=== PATIENT | female | born 1955 | race Caucasian/White ===

== ENCOUNTER → 2016-08-15 | Outpatient (CLI) | payer OTHER ==
[~2016-08-15] MED LIST: ASCO500T2 PO; CA C1TAB35 PO; DOCU100C5 PO; ESOM20CA PO; METH-39 PO; MULT-208 PO; OMEG1CAP43 PO; OXYB5TAB7 PO
--- NOTE | 2016-08-15 20:30 | PAIN ---
DATE OF SERVICE: 08/15/2016 DIAGNOSES: Cervical radiculopathy with cervical spinal stenosis and cervical degenerative disk disease. HISTORY OF PRESENT ILLNESS: The is a 61-year-old female, who returns for followup status post cervical epidural steroid injection x 1. The patient reports approximately 100% improvement in the neck and right upper extremity. The patient reports doing very well, is very pleased with the progress. The pain is only a twinge just now and then when she is doing some activity with her right arm such as driving or holding a phone for prolonged period. Otherwise, the patient reports she is doing well. She is sleeping well at night, increased her activity with greater ease and comfort. No new motor or sensory deficits, no new complaints. The patient rates the pain as 0 on a scale 10 today, has been doing quite well. The patient's old chart was reviewed, as was her current medication regimen updated. Current review of systems updated today as well. PHYSICAL EXAMINATION: VITAL SIGNS: Today, the patient's blood pressure is 159/97, pulse 99, respirations 18, temperature 99.1 degrees Fahrenheit, height is 5 feet 4 inches, weight is 181 pounds. GENERAL: The patient is awake, alert, oriented, appropriate, very pleasant demeanor. HEENT: Head shows normocephalic, atraumatic. Extraocular movements are intact and symmetrical. Oral cavity shows mucous membranes moist and pink. Dentition intact. NECK: Shows anterior throat supple without palpable lymphadenopathy noted. Swallow reflex is symmetrical. CHEST: Shows normal on inspection. Breath sounds clear to auscultation bilaterally. HEART: Shows S1 and S2 clear. ABDOMEN: Soft, nontender, nondistended. No palpable organomegaly. No rebound or guarding demonstrated. BACK: Shows spine grossly midline. Cervical paraspinous muscle shows some very mild tenderness, but only with deep palpation in the inferior aspect of the right paraspinous musculature in the cervical distribution, as well as superior, medial, and lateral trapezius, but without radiation, without asymmetry. The patient shows good rotational motion of cervical spine, both laterally greater than 45 degrees, right and left full extension, full forward flexion without significant pain reported. Upper extremity showed deep tendon reflexes at 2+ in the biceps and triceps tendons. 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 Options were discussed with the patient. The patient's old chart was reviewed as her current medication regimen updated. Current review of systems updated today as well. We will hold on any further injections at this time as the patient is doing quite well, instruct her to maintain physical therapy type exercises with stretching and strengthening of the neck and upper extremities and shoulders, arms. Also discussed her blood pressure, which is slightly elevated today. She reports that she has this on occasion and is encouraged to discuss this with her primary care physician, which she acknowledges. Also we had medication, meloxicam, which the pharmacy would not fill as she had a swelling reaction with some ibuprofen about 10 years ago. We will try different pharmacy to see if she may get some of this filled so she could try this. Obviously, if any allergic reactions and side effects occurred, she would stop it immediately. The patient understands this as well and we discussed this in some detail today. DAVID LOCKWOOD MD DR: SAMARA/mary JOB#: [id number] / [id number]
== END | disposition home or self-care (01) ==
LOC: PNCL 08:03
PROVIDERS: ATTEND Anesthesiology
DX: M50.10 Cervical disc disorder with radiculopathy, unspecified cervical region (principal); M48.02 Spinal stenosis, cervical region
CPT/HCPCS: 99212

== ENCOUNTER → 2017-05-01 | Outpatient (CLI) | payer OTHER ==
[~2017-05-01] MED LIST changes: +DOCU100C28 PO; -DOCU100C5 PO; +IOHEXOL 180 MG/ML 10 ML VIAL. ONE; +methylPREDNISolone ACETATE 40 MG/ML VIAL. ONE; +methylPREDNISolone ACETATE 80 MG/ML VIAL. ONE
--- NOTE | 2017-05-02 02:26 | PAIN ---
DATE OF SERVICE: 05/01/2017 DIAGNOSES: Cervical radiculopathy with cervical spinal stenosis and cervical degenerative disk disease. HISTORY OF PRESENT ILLNESS: The patient is a 62-year-old female who returns for followup status post cervical epidural steroid injection x 1 in July 2016. The patient did quite well with this with near 100% improvement. The pain has only been returning over the past 2-3 weeks ago. The patient reports increasing the base of the neck and bilateral shoulders and upper extremities, somewhat worse on the right than the left but present bilaterally. The patient reports no loss of motor function, but her pain is an 8 on a scale of 10 at its worst and about a 7 otherwise. The patient reports it is aching, shooting, cramping, stabbing, becoming more constant and without any specific new injury or accident that she is aware of. The patient reports this is awakening her from sleep. She sleeps about 5 hours at a time, and she has to reposition, get out of bed and take pain medication, and she is usually able to get back to sleep. The patient reports no new motor or sensory deficits or other complaints. PHYSICAL EXAMINATION: VITAL SIGNS: The patient's blood pressure 147/90, pulse 79, respirations 18, temperature is 98.2 degrees Fahrenheit, height is 5 feet 5 inches, weight is 187 pounds. GENERAL: The patient is awake, alert, oriented, appropriate, very pleasant demeanor. HEENT -- head shows normocephalic and atraumatic. Extraocular movements are intact and symmetrical. Oral cavity: Mucous membranes are moist and pink. Dentition is intact. NECK: Shows anterior throat supple without palpable lymphadenopathy noted. Swallow reflex is symmetrical. CHEST: Shows normal with inspection. Breath sounds clear to auscultation bilaterally. HEART: Shows S1 and S2 clear. No murmurs are auscultated. ABDOMEN: Soft, nontender, nondistended. No palpable organomegaly is noted. MUSCULOSKELETAL: Back shows spine grossly in midline, normal-appearing cervical lordotic curvature, thoracic kyphotic curvature and lumbar lordotic curvature. No previous bruises, lesions, rashes or scars are noted. Cervical distribution shows paraspinous musculature is symmetrical on inspection and with palpation shows moderate tenderness throughout the middle and lower distribution of paraspinous muscles in the cervical distribution bilaterally. Also, in the superior, medial and lateral trapezius somewhat more tender on the right than the left but present with tenderness bilaterally with palpation. The patient shows good rotational motion of cervical spine, both laterally, greater than 45 degrees right and left as well as full extension with some minor tenderness in the base of the neck reported but decreased and actually relieved pain with forward flexion, which he performs fully. Upper extremities show deep tendon reflexes 2+ in the biceps and triceps tendons. Motor exam is strong with powder expert strength rated 5/5 and equal bilaterally with the biceps and triceps flexion approximately 4 on a scale of 5 on the right biceps but 5/5 on the left. Peripheral pulses are 2+ in radial distribution. No peripheral edema is noted. No clubbing. No cyanosis. Shoulder shrug is strong and intact without loss of strength on resistance. PLAN: Options were discussed with the patient. The patient's old chart was reviewed as her current medication regimen updated. Current review of systems updated today as well, and we will proceed with a cervical epidural steroid injection today with fluoroscopic guidance. Risks were again discussed including but not limited to bleeding, infection, possibility of epidural hematoma and subsequent neurological compromise, dural puncture headaches, spinal cord and/or nerve damage, side effects of steroid medication and poor results regarding pain control. The patient understands and wishes to proceed. The patient will return to the clinic in approximately 2 weeks for followup. She was counseled as to return appointment, activity level and side effects to be aware of. DIAGNOSIS: Cervical radiculopathy, cervical spinal stenosis and cervical degenerative disk disease. PROCEDURE: Cervical epidural steroid injection in translaminar approach at C6-C7 level using C-arm fluoroscopic guidance under sterile prep and drape using local anesthetic. MEDICATION INJECTED: A total of 120 mg Depo-Medrol plus 5 mL preservative-free normal saline and 2 mL of Isovue for contrast. CONDITION AT DISCHARGE: Stable. The patient tolerated the procedure well and had no complications. DAVID LOCKWOOD MD DR: SAMARA/mary JOB#: [id number] / [id number]
== END | disposition home or self-care (01) ==
LOC: PNCL 08:22
PROVIDERS: ATTEND Anesthesiology
DX: M50.123 Cervical disc disorder at C6-C7 level with radiculopathy (principal); M48.02 Spinal stenosis, cervical region; Z88.6 Allergy status to analgesic agent
CPT/HCPCS: 62321; J1030; J1040

== ENCOUNTER → 2019-01-27 | Outpatient (CLI) | payer OTHER ==
[~2019-01-27] MED LIST changes: -IOHEXOL 180 MG/ML 10 ML VIAL. ONE; -methylPREDNISolone ACETATE 40 MG/ML VIAL. ONE; -methylPREDNISolone ACETATE 80 MG/ML VIAL. ONE
--- NOTE | 2019-01-27 12:12 | KCIC ---
MRI of the cervical spine without contrast 01/27/2019 CLINICAL HISTORY: Neck pain which radiates down both arms. TECHNIQUE: Unenhanced T1-weighted, T2-weighted and inversion recovery sagittal and gradient echo and T2-weighted axial images of the cervical spine were obtained. FINDINGS: Comparison study is dated 07/09/2016. Minimal lateral curvature of the cervical spine is seen convex to the left. There is reversal of the normal cervical lordosis. Degenerative signal changes are seen involving all of the disks of the cervical spine. Degenerative signal changes are seen within the marrow surrounding these discs. Loss of height of the C3-4, C4-5, C5-6 and C6-7 discs is noted. No area of abnormal signal intensity is seen involving the cervical spinal cord. At the C2-3 disc space there is a mild generalized disc bulge. Degenerative changes are seen involving the uncovertebral and facet joints bilaterally. These findings do not result in significant central spinal canal or neural foraminal stenosis. At the C3-4 disc space there is a mild to moderate generalized disc bulge. Degenerative changes are seen involving the uncovertebral and facet joints bilaterally. These findings efface the anterior CSF without resulting in significant central spinal canal stenosis. Mild bilateral neural foraminal stenosis is seen. At the C4-5 disc space there is a mild generalized disc bulge. This is eccentric to the left. Degenerative changes are seen involving the uncovertebral and facet joints, left greater than right. These findings do not result in significant central spinal canal stenosis. Mild left neural foraminal stenosis is seen. The right neural foramen is patent. At the C5-6 disc space there is a mild generalized disc bulge. Degenerative changes are seen involving the uncovertebral and facet joints bilaterally. These findings efface the anterior and posterior CSF resulting in mild central spinal canal stenosis without evidence of cord impingement. Mild to moderate bilateral neural foraminal stenosis is seen. At the C6-7 disc space there is a mild generalized disc bulge. Degenerative changes are seen involving the uncovertebral and facet joints bilaterally. These findings do not result in significant central spinal canal or neural foraminal stenosis. At the C7-T1 disc space there is a minimal generalized disc bulge. Degenerative changes are seen involving the facet joints bilaterally. These findings when combined do not result in significant central spinal canal or neural foraminal stenosis. Since the previous examination there has been no significant interval change. IMPRESSION: Degenerative changes are seen throughout the cervical spine. These findings result in mild central spinal canal stenosis without evidence of cord impingement at C5-6. Mild bilateral neural foraminal stenosis is seen at C3-4. Mild left neural foraminal stenosis is seen at C4-5. Mild to moderate bilateral neural foraminal stenosis is seen at C5-6. Electronically signed by: Kunal Mendoza MD (01/27/2019 12:09 PM) [id number]
== END | disposition home or self-care (01) ==
LOC: KCIC MRI 09:18
PROVIDERS: ATTEND Family Medicine
DX: M47.813 Spondylosis without myelopathy or radiculopathy, cervicothoracic region (principal); M47.22 Other spondylosis with radiculopathy, cervical region; M48.02 Spinal stenosis, cervical region
CPT/HCPCS: 72141

== ENCOUNTER → 2019-02-24 | Outpatient (CLI) | payer OTHER ==
[~2019-02-24] MED LIST changes: +GLUC1TAB45 PO; +TIZA4TAB PO; +tumeric/curcumin PO
--- NOTE | 2019-02-24 23:11 | PAIN ---
DATE OF SERVICE: 02/24/2019 PROGRESS NOTE FOR PAIN CLINIC DIAGNOSES: Cervical radiculopathy with cervical spinal stenosis and cervical degenerative disk disease. HISTORY OF PRESENT ILLNESS: The patient is a 63-year-old female who returns for followup, status post cervical epidural steroid injection in 04/2017. The patient did very well and reports near 100% improvement in her cervical radiculopathy pain at that time. The patient reports she did very well until about 6 months ago, the pain began to return without any specific injury or action that she is aware of at the base of the neck and shoulders, radiating to the upper extremities, slightly more on the right than the left, as well as previously into the shoulder, into the upper arm, posterior aspect of the triceps, into the right forearm and hand, with numbness and tingling that is going into the left as well and proximally the forearm on the left side, was radiating, aching, sharp, tight, shooting pain, rated as an 8 on a scale of 10 at its worst, 6 on average, 4 at its least and is an 8 today. The patient reports it is worse with activity, standing, walking, and changing positions, with awakening her from sleep at night at least every 5-6 hours, especially if she lays on her right side. The patient reports headaches from the pain as well and is becoming more and more constant. The patient reports no new motor or sensory deficits, no new changes, but significant radiating pain in a radicular fashion bilaterally in the right greater than left upper extremity. The patient did have a new MRI scan showing disk bulges at C4-C5, C5-C6, C6-C7, and C7-T1 with some moderate neural foraminal stenosis at C5-C6 and C6-C7 levels bilaterally. PHYSICAL EXAMINATION: VITAL SIGNS: The patient's blood pressure 135/53, pulse 62, respirations are 18, temperature 98.6 degrees Fahrenheit. Height is 5 feet 4 inches, weight is 186 pounds. GENERAL: The patient is awake, alert, oriented, appropriate, very pleasant demeanor. The patient is accompanied by her spouse. HEENT: Shows normocephalic, atraumatic. Extraocular movements are intact and symmetrical. Oral cavity: Mucous membranes are moist and pink. Dentition is intact. NECK: Shows anterior throat supple without palpable lymphadenopathy noted. Swallow reflex is symmetrical. CHEST: Shows normal on inspection. Breath sounds are clear to auscultation bilaterally. HEART: Shows S1, S2 clear. No murmurs auscultated. ABDOMEN: Soft, nontender, nondistended. No palpable organomegaly is noted. No rebound or guarding demonstrated. MUSCULOSKELETAL: The patient's neck shows posterior cervical musculature symmetrical with inspection, on palpation shows some moderate tenderness in the inferior aspect of the paraspinous muscles as well as the middle aspect of the paraspinous muscles and into the superior medial trapezius, more on the right than the left, but present bilaterally without specific trigger points, without radiation or asymmetry. The patient has good rotational motion with some minor tenderness with extension, but not with forward flexion, but full rotation right and left lateral greater than 45 degrees, closer to 90 degrees bilaterally. Upper extremities show deep tendon reflexes at 2+ in the biceps, triceps tendons. Motor exam is approximately 5 on a scale of 5 with gold assayer strength on the left and 4/5 on the right, and 4/5 on the right bicep and 5/5 on the left. Peripheral pulses are 2+ radial distribution. No peripheral edema is noted. Shoulder shrug is intact, but with some moderate pain with resistance, more on the right side than the left, in the base of the neck and shoulder, but without loss of strength on resistance. PLAN: Options were discussed with the patient. The patient's old chart was reviewed as was her current medication regimen updated. Current review of systems was updated today as well and we will preauthorize the patient for a cervical epidural steroid injection, as she has done very well with these in the past with 100% improvement, with the last injection in 04/2017 lasting almost a year and a half, the pain now returning without new injury with radiating pain in a radicular fashion, mostly in the C6-C7 level bilaterally, right greater than left. We will preauthorize for a C6-C7 level translaminar epidural steroid injection. The patient will continue with muscle relaxants. She was given a refill prescription for Zanaflex, was counseled on the side effects to be aware of as well and will keep exercising and stretching as she has been doing with the upper extremities and shoulders as well as the neck as tolerated and activity as tolerated also. The patient will return to clinic for cervical epidural steroid injection once approved. DAVID LOCKWOOD MD DR: SAMARA/mary JOB#: [id number] / [id number]
== END | disposition home or self-care (01) ==
LOC: PNCL 13:27
PROVIDERS: ATTEND Anesthesiology
DX: M50.10 Cervical disc disorder with radiculopathy, unspecified cervical region (principal); M48.02 Spinal stenosis, cervical region
CPT/HCPCS: G0463

== ENCOUNTER → 2019-03-07 | Outpatient (CLI) | payer OTHER ==
[~2019-03-07] MED LIST changes: +IOHEXOL 180 MG/ML 10 ML VIAL. ONE; -TIZA4TAB PO; +TIZA4TAB2 PO; +methylPREDNISolone ACETATE 40 MG/ML VIAL. ONE; +methylPREDNISolone ACETATE 80 MG/ML VIAL. ONE
--- NOTE | 2019-03-08 07:24 | PAIN ---
DATE OF SERVICE: 03/07/2019 PROGRESS NOTE FOR PAIN CLINIC DIAGNOSES: Cervical radiculopathy with cervical spinal stenosis and cervical degenerative disk disease. HISTORY OF PRESENT ILLNESS: This is a 63-year-old female who returns for followup status post initial evaluation and preauthorization for cervical epidural steroid injection. The patient reports still significant pain in the base of the neck and bilateral upper extremities, right greater than left, present with radiating pain into the upper extremities, again worse on the right side but present bilaterally. The patient reports her pain is an 8 on a scale of 10 at its worst in the past week, 8 on average, 7 at its least and is an 8 today. The patient reports aching, sharp, tight, shooting, tingling in the arms as it was previously. No significant changes. The patient reports it awakens her from sleep about every 6 hours if she lies on her right side. No significant changes, no new motor loss or other findings. PHYSICAL EXAMINATION: VITAL SIGNS: The patient's blood pressure is 140/95, pulse 85, respirations 18, temperature 98.8 degrees Fahrenheit, height is 5 feet 4 inches and weight is 188 pounds. GENERAL: The patient is awake, alert, oriented, appropriate, very pleasant demeanor. HEENT: Head shows normocephalic, atraumatic. Extraocular movements are intact and symmetrical. Oral cavity: Mucous membranes moist and pink. Dentition is intact. NECK: Shows anterior throat supple without palpable lymphadenopathy noted. Swallow reflex is symmetrical. CHEST: Shows normal on inspection. Breath sounds clear to auscultation bilaterally. HEART: Shows S1, S2 clear. No murmurs auscultated. ABDOMEN: Soft, nontender, nondistended. No palpable organomegaly is noted. No rebound or guarding demonstrated. BACK: Shows spine grossly in the midline, normal-appearing cervical lordotic curvature and thoracic kyphotic curvature. Cervical paraspinous muscle shows symmetrical on inspection, with palpation it shows some mild tenderness in the inferior paraspinous musculature as well as the superior medial trapezius. Again somewhat more tender on the right than the left, but present bilaterally and symmetrical without evidence of atrophy or hypertrophy, no trigger points noted. The patient has good rotational motion involving the cervical spine, both laterally greater than 45 degrees and closer to 90 degrees right and left as well as full extension, full forward flexion without significant increase in pain. EXTREMITIES: Upper extremities showed deep tendon reflexes 2+ in the biceps and triceps tendons. Motor exam is approximately 4 on a scale of 5 with right chief recordist strength and biceps and triceps and 5/5 on the left. Peripheral pulses are 2+ in radial distribution. No peripheral edema is noted bilaterally. Options were discussed with the patient. The patient's old chart was reviewed as her current medication regimen updated. Current review of systems updated today as well. We will proceed with a cervical epidural steroid injection today with fluoroscopic guidance. Risks were again discussed including but not limited to bleeding, infection, possibility of epidural hematoma, subsequent neurological compromise, dural puncture, headaches, spinal cord and/or nerve damage, side effects of steroid medication and poor results regarding pain control. The patient understands and wished to proceed. The patient will return to clinic in approximately 2 weeks for followup. She was counseled on return appointment, activity level and side effects to be aware of. DIAGNOSES: Cervical radiculopathy with cervical spinal stenosis and cervical degenerative disk disease. PROCEDURE: Cervical epidural steroid injection, translaminar approach at C6-C7 level using C-arm fluoroscopic guidance under sterile prep and drape using local anesthetic. MEDICATIONS INJECTED: A total of 120 mg Depo-Medrol plus 5 mL of preservative-free normal saline and 2 mL of contrast. CONDITION AT DISCHARGE: Stable. The patient tolerated the procedure well, had no complications. DAVID LOCKWOOD MD DR: SAMARA/mary JOB#: [id number] / [id number]
== END ==
LOC: PNCL 14:25
PROVIDERS: ATTEND Anesthesiology
DX: M50.123 Cervical disc disorder at C6-C7 level with radiculopathy (principal); M48.061 Spinal stenosis, lumbar region without neurogenic claudication
CPT/HCPCS: 62321; J1030; J1040; Q9965

== ENCOUNTER → 2019-03-28 | Outpatient (CLI) | payer OTHER ==
[~2019-03-28] MED LIST changes: -IOHEXOL 180 MG/ML 10 ML VIAL. ONE; -methylPREDNISolone ACETATE 40 MG/ML VIAL. ONE; -methylPREDNISolone ACETATE 80 MG/ML VIAL. ONE
--- NOTE | 2019-03-28 23:11 | PAIN ---
DATE OF SERVICE: 03/28/2019 PROGRESS NOTE FOR PAIN CLINIC DIAGNOSES: Cervical radiculopathy with cervical spinal stenosis and cervical degenerative disk disease. HISTORY OF PRESENT ILLNESS: The patient is a 63-year-old female who returns for followup status post cervical epidural steroid injection x 1. The patient reports about 60% improvement, but it took a few days to kick in. The patient reports since that time, the pain has been fairly well controlled, still present, but overall doing quite a bit better. The patient reports she is sleeping better at night, has not awakened her from sleep, she sleeps about 8 hours at a time. No new motor or sensory deficits. The patient reports the pain has been returning, however, over the past few days after the first injection, back about 3-1/2 weeks ago. The patient reports the pain now worst is an 8 on a scale of 10, on average is an 8, is a 7 at its least and is a 7 today. The patient reports it is aching, sharp, dull, tight, shooting, tingling, constant in the base of the neck and shoulders, somewhat more on the right greater than left upper extremity with some radicular pain in both the upper extremities and C6-C7 dermatomal distribution as it was previously, again significantly improved but still present and beginning to become more noticeable over the past 3-4 days. The patient reports no new motor or sensory deficits and no new bowel or bladder incontinence or other complaints. PHYSICAL EXAMINATION: VITAL SIGNS: The patient's blood pressure is 174/97, pulse 83, respirations are 18, temperature 98.4 degrees Fahrenheit, height is 5 feet 4 inches and weight is 187 pounds. GENERAL: The patient is awake, alert, oriented, appropriate, very pleasant demeanor. HEENT: Shows normocephalic, atraumatic. Extraocular movements are intact and symmetrical. Oral cavity: Mucous membranes moist and pink. Dentition is intact. NECK: Shows anterior throat supple without palpable lymphadenopathy noted. Swallow reflex symmetrical. CHEST: Shows normal on inspection. Breath sounds clear to auscultation bilaterally. HEART: Shows S1, S2 clear. No murmurs auscultated. ABDOMEN: Soft, nontender and nondistended. No palpable organomegaly is noted. No rebound or guarding demonstrated. BACK: Shows spine grossly in the midline. Normal-appearing thoracic kyphosis and some minor flattening of lumbar lordotic curvature. Cervical lordotic curvature is maintained. Cervical paraspinous muscle shows symmetrical on inspection. On palpation, she has some moderate tenderness diffusely, but only diffusely bilaterally without significant radiation. No specific trigger points. No atrophy or hypertrophy is demonstrated. The patient has good rotational motion of cervical spine, both laterally as well as extension and flexion without significant increase in pain. EXTREMITIES: Upper extremities show deep tendon reflexes 2+ in the biceps and triceps tendons. Motor exam is presently 4 on a scale of 5 on the right, 5/5 on the left with administrative support clerk strength, bicep and tricep flexion and peripheral pulses are 2+ radial distribution. No peripheral edema is noted. Options were discussed with the patient. The patient's old chart was reviewed as her current medication regimen updated. Current review of systems updated today as well. We will preauthorize the patient for a second cervical epidural steroid injection. She did very well after the first injection. Now, the pain is returning over the past few days with radicular quality in the right greater than left upper extremities is present bilaterally at C6-C7 dermatomal distribution. We will preauthorize the patient for C6-C7 level cervical epidural steroid injection. In the meantime, the patient will continue with stretching and strengthening exercises, heat application to the neck and shoulders as well and return once for authorization obtained for cervical epidural steroid injection. DAVID LOCKWOOD MD DR: SAMARA/mary JOB#: [id number] / [id number]
== END | disposition home or self-care (01) ==
LOC: PNCL 14:04
PROVIDERS: ATTEND Anesthesiology
DX: M50.10 Cervical disc disorder with radiculopathy, unspecified cervical region (principal); M48.02 Spinal stenosis, cervical region
CPT/HCPCS: G0463

== ENCOUNTER → 2019-04-12 | Outpatient (CLI) | payer OTHER ==
[~2019-04-12] MED LIST changes: +IOHEXOL 180 MG/ML 10 ML VIAL. ONE; +methylPREDNISolone ACETATE 40 MG/ML VIAL. ONE; +methylPREDNISolone ACETATE 80 MG/ML VIAL. ONE
--- NOTE | 2019-04-13 00:46 | PAIN ---
DATE OF SERVICE: 04/12/2019 PROGRESS NOTE FOR PAIN CLINIC DIAGNOSES: Cervical radiculopathy with cervical spinal stenosis and cervical degenerative disk disease. HISTORY OF PRESENT ILLNESS: This is a 63-year-old female who returns for followup status post cervical epidural steroid injection x 1 with about 100% improvement for the first several weeks. The patient reports the pain returned with pain in the base of the neck and shoulders and now on the left greater than the right. The patient reports her pain over the past week has been a 9 on a scale of 10 at its worst, 8 on average, 8 at its least and is an 8 today. The patient reports tingling, cramping, burning, aching, sharp, dull, becoming more constant at base and neck and into the shoulders and arms, mostly on the left side. The patient reports some fatigability to the left arm, but no actual motor loss. The patient reports no new motor or sensory deficits. It is awakening her from sleep at night occasionally when she lays on her left side. PHYSICAL EXAMINATION: VITAL SIGNS: The patient's blood pressure 138/92, pulse 91, respirations 18, temperature 98.1 degrees Fahrenheit, height is 5 feet 4 inches, weight is 185 pounds. GENERAL: The patient is awake, alert, oriented, appropriate, very pleasant demeanor. HEENT: Shows normocephalic, atraumatic. Extraocular movements are intact and symmetrical. Oral cavity, mucous membranes are moist and pink. Dentition is intact. NECK: Shows anterior throat supple without palpable lymphadenopathy noted. Swallow reflex is symmetrical. CHEST: Shows normal on inspection. Breath sounds are clear to auscultation bilaterally. HEART: Shows S1, S2 clear. No murmurs auscultated. ABDOMEN: Soft, nontender, nondistended. No palpable organomegaly is noted. No rebound or guarding demonstrated. BACK: Shows spine grossly in the midline. Normal appearing thoracic kyphosis and some minor flattening of lumbar lordotic curvature. Lumbar paraspinous muscle shows symmetrical on inspection, on palpation shows some moderate tenderness diffusely bilaterally going diffusely without radiation. NECK: Shows anterior throat supple. Posterior cervical musculature shows symmetrical on inspection, with palpation shows some moderate tenderness in the inferior cervical paraspinous muscles as well as the superior medial trapezius bilaterally. The patient has good rotational motion however in the cervical spine, both laterally as well as extension and flexion without significant difficulty. No pain reported. MUSCULOSKELETAL: The patient's upper extremities show deep tendon reflexes at 2+ in the biceps and triceps tendons. Motor exam is approximately 4 on a scale of 5 on the right, 5/5 on the left with factory hand strength, bicep and tricep flexion. Peripheral pulses are 2+ in the radial distribution. No peripheral edema is noted. PLAN: Options were discussed with the patient. The patient's old chart was reviewed as her current medication regimen updated. Current review of systems updated today as well. We will proceed with a second in a series of cervical epidural steroid injection today with fluoroscopic guidance. Risks were again discussed including, but not limited to bleeding, infection, possibility of epidural hematoma, subsequent neurologic compromise, dural puncture, headaches, spinal cord and/or nerve damage, side effects of steroid medication and poor results regarding pain control. The patient understands and wished to proceed. The patient will return to clinic in approximately 2 weeks for followup. She was counseled on return appointment, activity level and side effects to be aware of. DIAGNOSIS: Cervical radiculopathy with cervical spinal stenosis and cervical degenerative disk disease. PROCEDURE: Cervical epidural steroid injection, translaminar approach C6-C7 level using C-arm fluoroscopic guidance under sterile prep and drape using local anesthetic. MEDICATIONS INJECTED: A total of 120 mg Depo-Medrol plus 10 mL of preservative-free normal saline and 2 mL of contrast. CONDITION AT DISCHARGE: Stable. The patient tolerated procedure well, had no complications. DAVID LOCKWOOD MD DR: SAMARA/mary JOB#: [id number] / [id number]
== END ==
LOC: PNCL 13:37
PROVIDERS: ATTEND Anesthesiology
DX: M50.123 Cervical disc disorder at C6-C7 level with radiculopathy (principal); M48.02 Spinal stenosis, cervical region
CPT/HCPCS: 62321; J1030; J1040; Q9965

== ENCOUNTER → 2019-04-27 | Outpatient (CLI) | payer OTHER ==
[~2019-04-27] MED LIST changes: -IOHEXOL 180 MG/ML 10 ML VIAL. ONE; -methylPREDNISolone ACETATE 40 MG/ML VIAL. ONE; -methylPREDNISolone ACETATE 80 MG/ML VIAL. ONE
--- NOTE | 2019-04-28 04:35 | PAIN ---
DATE OF SERVICE: 04/27/2019 PROGRESS NOTE FOR PAIN CLINIC DIAGNOSES: Cervical radiculopathy with cervical spinal stenosis and cervical degenerative disk disease. HISTORY OF PRESENT ILLNESS: The patient is a 64-year-old female who returns for followup status post cervical epidural steroid injections x 2. The patient reports only minimal decrease in pain in the base of the neck and shoulders, especially on the right side greater than the left, but present bilaterally also in the upper mid back, with some tingling and burning as well. The patient reports it is aching, sharp, tight, tingling, radiating; initially better for a few days, but then the pain returned. Basically, it is baseline. The patient reports her pain is an 8 on a scale of 10 at its worst, average and least and is an 8 on a scale of 10 today. The patient reports no new motor or sensory deficits or other complaints. It awakens her from sleep about every 6-8 hours. The patient is somewhat frustrated as her pain is remaining fairly significant. We did review her MRI scan today with her and her , both with the report and the images themselves. The patient reports no new motor or sensory deficits. PHYSICAL EXAMINATION: VITAL SIGNS: The patient's blood pressure is 145/91, pulse 84, respirations 16 and temperature is 98.7 degrees Fahrenheit. Height is 5 feet 4 inches, weight is 188 pounds. GENERAL: The patient is awake, alert, oriented, appropriate, very pleasant demeanor. HEENT: Exam shows normocephalic, atraumatic. Extraocular movements are intact and symmetrical. Oral cavity: Mucous membranes are moist and pink. Dentition is intact. NECK: Shows anterior throat supple, without palpable lymphadenopathy noted. Swallow reflex is symmetrical. Neck shows posterior cervical musculature symmetrical, with some moderate tenderness throughout the upper, middle and lower distribution of the paraspinous muscles diffusely, but without specific radiation or trigger points. The patient has good rotational motion of cervical spine, both laterally, greater than 45 degrees as well as with extension, with some mild pain in the base of the neck with extension, but not with forward flexion, which was performed fully. CHEST: Shows normal on inspection. Breath sounds are clear bilaterally. EXTREMITIES: The patient's upper extremities show deep tendon reflexes 2+ in biceps and triceps tendons. Motor exam is approximately 4 on a scale 5 on the right and 5/5 on the left with machine crater strength, bicep and tricep flexion. Peripheral pulses are 2+ radial. No peripheral edema is noted bilaterally. Options were discussed with the patient. The patient's old chart was reviewed as was her current medication regimen updated. Current review of systems updated today as well and we will hold on any further injections at this time as the patient is not making any long-lasting progress with the 2 injections she has had. We discussed referral to her neurosurgeon as she has had some lumbar spine surgery done in the past. She would like to pursue this course. We will recommend neurosurgical or spine surgical evaluation and opinion. The patient was given copies of her MRI scans and reports today as well and we will follow up ____. DAVID LOCKWOOD MD DR: SAMARA/mary JOB#: [id number] / [id number] ELIAN Frye MD
== END | disposition home or self-care (01) ==
LOC: PNCL 13:35
PROVIDERS: ATTEND Anesthesiology
DX: M48.02 Spinal stenosis, cervical region (principal); M50.10 Cervical disc disorder with radiculopathy, unspecified cervical region
CPT/HCPCS: G0463